=== PATIENT | male | born 1955 | race Caucasian/White ===

== ENCOUNTER → 2016-08-19 | Outpatient (CLI) | payer SELFPAY ==
[2016-08-21 16:26] VITALS: BP 120/78
--- NOTE | 2016-08-21 16:26 | Urgent Care T Sheet Gen (E) ---
Intake General Temperature (Fahrenheit): 98.0 Pulse: 87 Blood Pressure Systolic: 120 Blood Pressure Diastolic: 78 Respirations: 20 SPO2: 98 Description of Symptoms patient presents with diarrhea and abdominal bloating x 4 days. States the diarrhea woke him up at approx 3am on Sunday. States the diarrhea is watery. Several BMs throughout the day. No fever. No bloody stools however he has been taking Kaopectate which has started to turn his stools black. Been eating normally. Denies lack of appetite. Has been eating mostly crackers and bananas. Drinking normally. Doesn't feel dehydrated. Patient is concerned with his weight. States he normally weights 175# however our scale today weighed him at 164#. Is scheduled to start his new job on Sunday. Respiratory Constitutional Symptoms: No syptoms reported EENTM: No symptoms reported Respiratory: No symptoms reported Cardiovascular: No symptoms reported Gastrointestinal/Abdominal: Diarrhea Black stools (from medication)No Nausea, No Vomiting All Other Systems Reviewed Remaining Systems: All other systems reviewed with negative findings Physical Exam Physical Exam General Appearance: WD/WN No apparent distress Eyes, Ears, Nose, Throat Ex: Pharynx normal (moist membranes) Respiratory Exam: Lungs clear Normal breath sounds Cardiovascular Exam: Regular rate, rhythm GI/ Exam: Abnormal bowel sound (hyperactive) Comment examination of the abdomen reveals: soft, non tender to palpation. Patient stated the umbilical region is uncomfortable due to bloating however palpation didn't elicit pain. hyperresonance mostly along the umbilical region. hyperactive bowel sounds Departure Urgent Care Impression Impression: Primary Impression: Gastroenteritis Departure Disposition: 01 HOME OR SELF-CARE Condition: Stable Additional Instructions: Most likely a viral gastroenteritis. He is to continue with OTC Kaopectate. This should help to lessen the symptoms. Since he is afebrile, abd is not tender and no reports of bloody stools, it is safe to treat at home. If any of these symptoms start, he is to present to the ER for workup. I asked him to return on Sunday to re-weight. patient states he is normally 175 # however our scale weighed him at 164#. Could be a difference in scales. Will recheck on Sunday and see what he weighs. Patient understands DC instructions. All questions were answered. End of report . ANDREW BENITO Aug 19, 2016 11:38
--- NOTE | 2016-08-21 16:29 | Urgent Care Follow Up Note (E) ---
Urgent Care Follow Up Note Talked with the patient regarding his gastroenteritis which was diagnosed on Sunday. Patient states he is back to normal. States he is putting weight back on (which was an issue/concern on Sunday). Patient started his new job today and didn't have any issues. He appreciated the call. Return as needed ANDREW BENITO Aug 21, 2016 16:29
== END ==
LOC: MHUC 10:42
PROVIDERS: ATTEND Physician Assistant
DX: K52.9 Noninfective gastroenteritis and colitis, unspecified (principal)